=== PATIENT | female | born 1950 | race Caucasian/White ===

== ENCOUNTER 2018-04-21 14:08 | Outpatient (CLI) | payer BC | END 2018-04-21 14:09 | disposition home or self-care (01) | LOC: BICMAMMO 14:08 | PROVIDERS: ATTEND Obstetrics & Gynecology | DX: Z12.31 Encounter for screening mammogram for malignant neoplasm of breast (principal) | CPT/HCPCS: 77063; 77067 ==

== ENCOUNTER 2018-04-23 10:59 | Outpatient (CLI) | payer BC ==
--- NOTE | 2018-04-25 14:44 | RAD ---
MODIFIED BARIUM SWALLOW PERFORMED WITH SPEECH THERAPIST: HISTORY: Dysphagia, unspecified. Dysphagia, unspecified. Dysphagia pharyngeal phase and epistaxis. FINDINGS: The patient was given a variety of materials from thin liquid to soft tissue laura cracker. This sh owed premature spillage to the vallecular level with thin liquid, also some mild residue at the pirif orm sinus and vallecular levels. No evidence for aspiration demonstrated during the exam. There is a suggestion there may have been some very minimal flash penetration with what appeared to b e thin liquids. IMPRESSION: Flash penetration seen on 1 image. No aspiration demonstrated during this exam. See speech therapy report for additional detail. POS: [facility]
== END 2018-04-23 11:00 | disposition home or self-care (01) ==
PROVIDERS: ATTEND Otolaryngology Plastic Surgery within the Head & Neck
DX: R13.13 Dysphagia, pharyngeal phase (principal); R04.0 Epistaxis
CPT/HCPCS: 74230; G8996-GN-CJ; G8997-GN-CI; G8998-GN-CJ

== ENCOUNTER 2019-06-01 13:04 | Outpatient (CLI) | payer BC, MEDICARE ==
--- NOTE | 2019-06-01 16:27 | MMO ---
Bilateral MAMMO Bilat Screen [facility]. CLINICAL HISTORY: Patient is 69 years old and is seen for screening. The patient has no family history of breast cancer. The patient has no personal history of cancer. VIEWS: The views performed were: bilateral craniocaudal with tomosynthesis and bilateral mediolateral oblique with tomosynthesis. FILMS COMPARED: The present examination has been compared to prior imaging studies performed at [facility] on 03/23/2015, 03/26/2016, 04/22/2017 and 04/21/2018. This study has been interpreted with the assistance of computer-aided detection. MAMMOGRAM FINDINGS: The breasts are almost entirely fat. There are no suspicious masses, suspicious calcifications, or new areas of architectural distortion. IMPRESSION: THERE IS NO MAMMOGRAPHIC EVIDENCE OF MALIGNANCY. A ROUTINE FOLLOW-UP MAMMOGRAM IN 1 YEAR IS RECOMMENDED. THE RESULTS OF THIS EXAM WERE SENT TO THE PATIENT. ACR BI-RADS Category 1 - Negative MAMMOGRAPHY NOTE: 1. A negative mammogram report should not delay a biopsy if a dominant of clinically suspicious mass is present. 2. Approximately 10% to 15% of breast cancers are not detected by mammography. 3. Adenosis and dense breasts may obscure an underlying neoplasm. Reported by: FILIBERTO MUELLER MD Electonically Signed: [id number]
== END 2019-06-01 13:05 | disposition home or self-care (01) ==
LOC: BICMAMMO 13:04
PROVIDERS: ATTEND Obstetrics & Gynecology
DX: Z12.31 Encounter for screening mammogram for malignant neoplasm of breast (principal)
CPT/HCPCS: 77063; 77067

== ENCOUNTER 2019-10-09 10:32 | Outpatient (CLI) | payer MEDICARE, BC ==
--- NOTE | 2019-10-09 11:45 | MRI ---
MRI cervical spine noncontrast: DATE: 10/09/2019 HISTORY: 69-year-old female with cervical radiculopathy and chronic cervicalgia FINDINGS: Because of chronic cough, the patient's head was elevated. This results in poor etqzuc-we-qqxoq ratio in the mid cervical spine. This patient difficult to evaluate for intramedullary signal abnormality. The upper spinal cord and upper thoracic spinal cord are normal in size and signal. Vert ebral body heights are maintained. Mild reversal of curvature, kyphosis. Developmentally small caliber spinal canal exacerbated by cervical spondylosis. C1-2: No central stenosis. C2-3: Disc space maintained. Moderate bilateral facet DJD. Mild right neural foraminal stenosis. No s ignificant left neural foraminal stenosis. Mild central stenosis. C3-4: Moderate size bilateral uncinate process osteophytes. No high-grade disc space narrowing. Moder ate right facet DJD. Normal left facet joint. No high-grade central stenosis. Moderate right neural foraminal stenosis. No left neural foraminal stenosis. C4-5: Mild retrolisthesis of C4 on C5. Moderate to severe disc space narrowing. Broad-based disc-oste ophytic bar complex indents the ventral surface of spinal cord. Mild ligamentum flavum thickening abuts the dorsal surface of spinal cord. Severe central spinal canal stenosis. Moderate-large size bi lateral uncinate process osteophytes. Severe bilateral neural foraminal stenosis. No high-grade facet DJD. C5-6:Mild retrolisthesis of C5 on C6. Severe disc space narrowing. Broad-based disc-osteophytic bar c omplex indents the ventral surface of spinal cord. Mild ligamentum flavum thickening abuts the dorsal surface of spinal cord. Severe central spinal canal stenosis. Large size bilateral uncinate pr ocess osteophytes. Severe bilateral neural foraminal stenosis. No high-grade facet DJD. C6-7: Severe disc space narrowing. Broad-based disc-osteophytic bar complex abuts the ventral surface of spinal cord. Large bilateral uncinate process osteophytes cause bilateral moderate to severe neural foraminal stenosis. Normal facet joints. C7-T1: Bilateral moderate facet DJD causes slight grade 1 anterolisthesis of C7 on T1. Moderate right neural foraminal stenosis. Mild left neural foraminal stenosis. No central stenosis. Moderate disc space narrowing. IMPRESSION: Moderate cervical spondylosis, with multilevel high-grade degenerative disc disease, high-grade centr al spinal canal stenosis, and high-grade bilateral neural foraminal stenosis.
== END 2019-10-09 10:33 | disposition home or self-care (01) ==
LOC: SCSMRI 10:32
PROVIDERS: ATTEND Neurological Surgery
DX: M50.10 Cervical disc disorder with radiculopathy, unspecified cervical region (principal); M47.22 Other spondylosis with radiculopathy, cervical region; M48.02 Spinal stenosis, cervical region
CPT/HCPCS: 72141

== ENCOUNTER 2020-03-29 09:14 | Outpatient (CLI) | payer MEDICARE, BC ==
--- NOTE | 2020-03-29 12:28 | MRI ---
MRI LUMBAR SPINE WITH AND WITHOUT CONTRAST: HISTORY: Back pain. Left radiculopathy. History of prior surgery. FINDINGS: Comparison is made to MRI lumbar spine from 04/14/2015. The lumbar vertebrae maintain height. There are prominent degenerative disk changes at L2-3, L3-4, L4-5, and L5-S1. Degenerative disk and end plate changes have progressed significantly at L3-4 and L4-5 since the prior study. Anterolisthe sis at L3-4 is again noted, not significantly changed in degree. Degenerative disk changes at L2-[address] progressed. There is now posterior osteophyte and disk bulge at L2-3 when compared to the prior exam. Findings at each disk level are noted. T12-L1: No disk bulge or protrusion. No central canal or foraminal stenosis. L1-2: No significant disk bulge. Mild facet hypertrophy. No central canal or foraminal stenosis. L2-3: Posterior osteophyte and disk bulge flatten the thecal sac. Moderate facet hypertrophy with p osterior epidural fat. These changes result in mild to moderate central canal stenosis. Left forami nal stenosis. L3-4: The anterolisthesis is again noted with the broad-based disk bulge. Prominent posterior hyper trophic change. Posterior epidural fat. These changes compress the thecal sac resulting in moderate to severe central canal stenosis. Left foraminal stenosis. L4-5: Broad-based disk bulge. Prominent facet hypertrophy. Moderate central canal stenosis. Mild right foraminal stenosis. L5-S1: Broad-based disk bulge. Facet hypertrophy. No significant central canal stenosis. Mild moi ateral stenosis. IMPRESSION: There has been progression of degenerative disk changes at L2-3, L3-4, and L4-5 when compared to the prior study. Findings at each level noted above. POS: [facility]
== END 2020-03-29 09:15 | disposition home or self-care (01) ==
LOC: SCSMRI 09:14
PROVIDERS: ATTEND Neurological Surgery
DX: M51.16 Intervertebral disc disorders with radiculopathy, lumbar region (principal)
CPT/HCPCS: 72158; 82565

== ENCOUNTER 2020-05-13 06:47 | Outpatient (CLI) | payer MEDICARE, BC, OTHER ==
[2020-05-13 17:21] LABS: SARS-CoV-2 MS2 Positive; SARS-CoV-2 N Gene Negative; SARS-CoV-2 S Gene Negative; SARS-CoV-2 by NAA Not Detected (NotDetected); SARS-CoV-2 orf1ab Negative
== END 2020-05-13 06:48 | disposition home or self-care (01) ==
LOC: LABBT 06:47
PROVIDERS: ATTEND Surgery
DX: M48.061 Spinal stenosis, lumbar region without neurogenic claudication (principal); Z20.828 Contact with and (suspected) exposure to other viral communicable diseases
CPT/HCPCS: 87635; U0003

== ENCOUNTER 2020-05-18 06:37 | Day surgery (SDC) | payer MEDICARE, BC ==
[2020-05-17 13:35] VITALS: BMI 28.2
[2020-05-18] MEDS ORDERED: Bupivacaine HCl 0.5%/Epinephrine 1:200,000/PF 30 ml Vial ONE (08:11)
[2020-05-18] MEDS ORDERED: Fentanyl 100 MCG/2 ML VIAL ONE ×3 (08:36→10:57)
[2020-05-18] MEDS ORDERED: EPHEDRINE 25 MG/5 ML SYRINGE ONE (09:46)
[2020-05-18] MEDS ORDERED: PHENYLEPHRINE-NS 100 MCG/ML 10 ML SYRINGE ONE (09:46)
[2020-05-18] MEDS ORDERED: PROPOFOL 200 MG/20 ML VIAL ONE (09:46)
[2020-05-18] MEDS ORDERED: Rocuronium Bromide 10 MG/ML (10ML VIAL) ONE (09:46)
[2020-05-18] MEDS ORDERED: Dexamethasone 20 MG/5 ML VIAL ONE (09:46)
[2020-05-18] MEDS ORDERED: Ondansetron PF 4 MG/2 ML Vial ONE (09:46)
[2020-05-18] MEDS ORDERED: Lidocaine 1% PF 5 ML VIAL ONE (09:46)
[2020-05-18] MEDS ORDERED: SUGAMMADEX SODIUM 200 MG/2 ML VIAL ONE (10:35)
--- NOTE | 2020-05-18 11:20 | OP ---
DATE OF PROCEDURE: 05/18/2020 LITIGATION SERVICES MANAGER: Toan Dodd PA-C INDICATION: Pain. DIAGNOSES: Lumbar stenosis with symptoms of claudication and radiculopathy. PROCEDURE PERFORMED: L3-L4 decompression. ANESTHESIA: General. DESCRIPTION OF PROCEDURE: The patient was brought into the operating room and placed under general anesthesia. She was flipped from the supine to prone position on the operating room table. A linear incision was planned over the L3-L4 segment. After prepping and draping and after an appropriate preoperative pause, the incision was created. The soft tissues were swept away from midline. A self-retaining retractor was placed. After confirming the appropriate level with C-arm fluoroscopy, an Adson rongeur was used to remove the spinous process of L3 and the remaining portion of the superior aspect of L4. High-speed cutting drill bit as well as 2, 3, and 4 mm Kerrisons were used to complete the laminectomy. A laminectomy was extended laterally to encompass the medial aspect of the facet joints. There was a synovial cyst present at the L3-L4 segment on the right side, that was carefully removed. After completing the decompression, the wound was irrigated. Hemostasis was maintained throughout. The wound was then closed in anatomic layers, and a pressure dressing was applied. There were no known procedural complications. Job ID: [id number]
[2020-05-18] MEDS ORDERED: Labetalol HCl 100 MG/20 ML VIAL ONE (11:42)
[2020-05-18] MEDS ORDERED: Midazolam HCl 2 mg/2 ml Vial ONE (11:42)
--- NOTE | 2020-05-18 11:55 | HP ---
HISTORY OF PRESENT ILLNESS: Ms. Bradford is a pleasant 70-year-old woman, known to us for prior lumbar decompression, who returns now with bilateral lateral hip pains that worsen when walking. She has some tenderness over the bilateral greater trochanteric bursa and has attempted bursa injections with really no relief. She has attempted multiple lower back injections again with minimal relief. New MRI from [place] reveals rather significant central canal stenosis at L3-L4, this very well could cause any number of symptoms below that level, given she has exhausted treatment for bursitis, hip problems had her evaluated by Orthopedics. All this is come back negative for any other pathology, lumbar segment at L3-L4. She hopes to treat this given the significant impact is having on her activity level. PHYSICAL EXAMINATION: She is alert and oriented x3. Gait is mildly antalgic. Lower extremity motor exam is normal. Negative femoral stretch. Negative straight leg raise. PAST MEDICAL HISTORY: Anxiety, depression, and hypertension. PAST SURGICAL HISTORY: Lumbar decompression. MEDICATIONS: 1. Bupropion. 2. Fluoxetine. 3. Lisinopril. 4. Levothyroxine. 5. Clonidine. ALLERGIES: NO KNOWN DRUG ALLERGIES. ASSESSMENT: Lumbar stenosis. PLAN: Dr. Nelson met with the patient, reviewed imaging, and advocated for L3-L4 decompression. He explained to the patient the risks, benefits, and alternatives to the procedure. The patient expressed understanding and elected to move forward with surgery as discussed. I do believe the patient is mentally component and capable of making medical decisions for herself. We will move forward with surgery as planned. Job ID: [id number]
[2020-05-18] MEDS ORDERED: Acetaminophen/Codeine 30-300mg Tablet ONE (13:05)
== END 2020-05-18 13:55 | disposition home or self-care (01) ==
LOC: SDC 06:37
PROVIDERS: ATTEND Neurological Surgery
PROC: 01NB0ZZ Release Lumbar Nerve, Open Approach (ICD-10-PCS; principal; 2020-05-18)
DX: M48.062 Spinal stenosis, lumbar region with neurogenic claudication (principal); M54.16 Radiculopathy, lumbar region; M71.38 Other bursal cyst, other site; F41.9 Anxiety disorder, unspecified; F32.9 Major depressive disorder, single episode, unspecified; I10 Essential (primary) hypertension; Z79.899 Other long term (current) drug therapy
CPT/HCPCS: 76000; J0690; J1100; J2250; J2405; J2704; J3010

== ENCOUNTER 2020-05-25 19:48 | Emergency (ER) | payer MEDICARE, BC ==
--- NOTE | 2020-05-25 22:10 | ULT ---
LEFT LOWER EXTREMITY VENOUS DUPLEX EXAM: Date: 05/25/2020 INDICATION: Left lower extremity pain and edema. FINDINGS: Deep veins of left lower extremity evaluated with ultrasound and Doppler. Color Doppler, spectral ck lysis, and compression studies. Deep veins of left lower extremity demonstrate normal blood flow and compression. No evidence of deep venous thrombosis. IMPRESSION: No evidence of left lower extremity deep venous thrombosis. POS: [facility]
[2020-05-25 22:50] LABS: Prothrombin Time 13.1 sec (12.0-14.7)
== END 2020-05-25 22:42 | disposition home or self-care (01) ==
LOC: ERS 19:48
DX: M79.89 Other specified soft tissue disorders (principal); I10 Essential (primary) hypertension; F41.9 Anxiety disorder, unspecified; F32.9 Major depressive disorder, single episode, unspecified
CPT/HCPCS: 36415; 85610; 85730

== ENCOUNTER 2020-11-23 13:20 | Outpatient (CLI) | payer MEDICARE, BC | END 2020-11-23 13:21 | disposition home or self-care (01) | LOC: BICMAMMO 13:20 | PROVIDERS: ATTEND Neurological Surgery | DX: Z13.820 Encounter for screening for osteoporosis (principal); M47.26 Other spondylosis with radiculopathy, lumbar region; M25.552 Pain in left hip; M85.851 Other specified disorders of bone density and structure, right thigh; M85.852 Other specified disorders of bone density and structure, left thigh | CPT/HCPCS: 72131; 77080 ==

== ENCOUNTER 2020-12-13 09:08 | Outpatient (CLI) | payer MEDICARE, BC | END 2020-12-13 09:09 | disposition home or self-care (01) | LOC: TBSIIMAG 09:08 | PROVIDERS: ATTEND Neurological Surgery | DX: M47.26 Other spondylosis with radiculopathy, lumbar region (principal) | CPT/HCPCS: 72100 ==

== ENCOUNTER 2021-01-13 06:31 | Observation (INO) | payer MEDICARE, BC ==
[2021-01-13] MEDS ORDERED: EPINEPHrine 1 MG/ML AMP ONE (06:38)
[2021-01-13] MEDS ORDERED: Thrombin 5000 UNITS/5 ML VIAL ONE (06:38)
[2021-01-13] MEDS ORDERED: Bupivacaine PF 0.5% 30 ML VIAL ONE (06:38)
[2021-01-13] MEDS ORDERED: Fentanyl 100 MCG/2 ML VIAL ONE ×4 (07:12→13:33)
[2021-01-13] MEDS ORDERED: Ondansetron PF 4 MG/2 ML Vial ONE (07:52)
[2021-01-13] MEDS ORDERED: Dexamethasone 20 MG/5 ML VIAL ONE (07:52)
[2021-01-13] MEDS ORDERED: Lidocaine 1% PF 5 ML VIAL ONE (07:52)
[2021-01-13] MEDS ORDERED: PHENYLEPHRINE-NS 100 MCG/ML 10 ML SYRINGE ONE (07:52)
[2021-01-13] MEDS ORDERED: Ketorolac Tromethamine 30 MG/ML VIAL ONE (07:52)
[2021-01-13] MEDS ORDERED: PROPOFOL 200 MG/20 ML VIAL ONE (07:52)
[2021-01-13] MEDS ORDERED: Rocuronium Bromide 10 MG/ML (10ML VIAL) ONE (07:52)
[2021-01-13] MEDS ORDERED: Vecuronium 10 MG VIAL ONE (07:52)
[2021-01-13] MEDS ORDERED: Albumin 5% 500 ML ONE (10:04)
[2021-01-13] MEDS ORDERED: SUGAMMADEX SODIUM 200 MG/2 ML VIAL ONE (10:44)
[2021-01-13] MEDS ORDERED: HYDROmorphone 0.5 MG/0.5 ML SYRINGE ONE ×2 (11:51→12:35)
[2021-01-13] MEDS ORDERED: HYDROcodone/Acetaminophen 5/325 mg Tablet ONE ×2 (14:23→18:34)
[2021-01-13] MEDS ORDERED: tiZANidine HCl 4 MG TAB PO PRN (19:29)
[2021-01-13] MEDS ORDERED: Ondansetron PF 4 MG/2 ML Vial IM PRN (19:29)
[2021-01-13] MEDS ORDERED: Morphine 2 MG/ML VIAL SLOW IVP PRN (19:30)
[2021-01-13] MEDS ORDERED: diphenhydrAMINE 25 MG CAP PO PRN (19:30)
[2021-01-13] MEDS ORDERED: Acetaminophen 650 MG Suppository PR PRN (19:30)
[2021-01-13] MEDS ORDERED: diphenhydrAMINE 50 MG/ML VIAL IVP PRN (19:30)
[2021-01-13] MEDS ORDERED: Sodium Chloride 0.9% 1,000 ML IV SCH (19:30)
[2021-01-13] MEDS ORDERED: Acetaminophen 325 MG TAB PO PRN (19:30)
[2021-01-13] MEDS ORDERED: Morphine 4 MG/ML VIAL SLOW IVP PRN (19:30)
[2021-01-13] MEDS ORDERED: Bisacodyl 10 MG SUPP PR PRN (19:30)
[2021-01-13 19:44] VITALS: BMI 30.2
[2021-01-13] MEDS: CEFAZOLIN 2 GM in Premix Bag 1 BAG IVPB SCH (20:10)
[2021-01-13] MEDS ORDERED: Donepezil HCl 5 MG TAB PO SCH (21:00)
[2021-01-13] MEDS ORDERED: Modafinil 100 MG TAB PO SCH (21:00)
[2021-01-13] MEDS: ALPRAZolam 0.5 MG TAB PO SCH (21:49)
[2021-01-13] MEDS ORDERED: HYDROcodone/Acetaminophen 10/325 mg Tablet PO PRN (22:00)
[2021-01-13] MEDS: HYDROcodone/Acetaminophen 10/325 mg Tablet PO PRN (22:02)
[2021-01-14] MEDS: CEFAZOLIN 2 GM in Premix Bag 1 BAG IVPB SCH (04:22)
[2021-01-14] MEDS: HYDROcodone/Acetaminophen 10/325 mg Tablet PO PRN ×2 (04:26→12:27)
[2021-01-14] MEDS ORDERED: Levothyroxine Sodium 100 MCG TAB PO SCH (06:00)
[2021-01-14] MEDS ORDERED: Losartan 25 MG TAB PO SCH (09:00)
[2021-01-14] MEDS ORDERED: Amlodipine 5 MG TAB PO SCH (09:00)
[2021-01-14] MEDS ORDERED: PARoxetine 20 MG TAB PO SCH (09:00)
[2021-01-14] MEDS ORDERED: Hydrochlorothiazide 25 MG TAB PO SCH (09:00)
[2021-01-14] MEDS ORDERED: Bupropion 150 MG XL TAB PO SCH (09:00)
[2021-01-14] MEDS: ALPRAZolam 0.5 MG TAB PO SCH (09:06)
[2021-01-14 11:50] VITALS: BP 103/53; TEMP 98.1
== END 2021-01-14 12:46 | disposition home or self-care (01) ==
LOC: SDC 06:31 → SURG A 18:26
PROVIDERS: ADMIT Neurological Surgery; ATTEND Neurological Surgery
PROC: 0SG0071 Fusion of Lumbar Vertebral Joint with Autologous Tissue Substitute, Posterior Approach, Posterior Column, Open Approach (ICD-10-PCS; principal; 2021-01-13)
DX: M48.061 Spinal stenosis, lumbar region without neurogenic claudication (principal); M43.16 Spondylolisthesis, lumbar region; M47.26 Other spondylosis with radiculopathy, lumbar region; M51.16 Intervertebral disc disorders with radiculopathy, lumbar region; I10 Essential (primary) hypertension; Z79.899 Other long term (current) drug therapy; Z98.890 Other specified postprocedural states
CPT/HCPCS: 20930; 20936; 22612; 22840; 76000; 96365; 96376; C1713 ×4; C1768; G0378 ×2; P9045; J0171; J0690; J1100; J1170; J1885; J2405; J2704; J3010; S0020

== ENCOUNTER 2021-06-15 13:53 | Outpatient (CLI) | payer MEDICARE, BC | END 2021-06-15 13:54 | disposition home or self-care (01) | LOC: TBSIIMAG 13:53 | PROVIDERS: ATTEND Neurological Surgery | DX: M47.26 Other spondylosis with radiculopathy, lumbar region (principal); Z98.1 Arthrodesis status | CPT/HCPCS: 72158 ==

== ENCOUNTER 2022-02-23 02:56 | Emergency (ER) | payer MEDICARE, BC ==
[2022-02-23] MEDS ORDERED: Cyclobenzaprine 10 MG TAB ONE (03:30)
[2022-02-23] MEDS ORDERED: HYDROcodone/Acetaminophen 5/325 mg Tablet ONE (06:45)
[2022-02-23] MEDS ORDERED: Dexamethasone 4 MG TAB ONE (10:25)
[2022-02-23] MEDS ORDERED: Morphine 4 MG/ML VIAL ONE (10:25)
== END 2022-02-23 10:36 | disposition home or self-care (01) ==
LOC: ERS 02:56
DX: M48.02 Spinal stenosis, cervical region (principal); I10 Essential (primary) hypertension; Z79.899 Other long term (current) drug therapy
CPT/HCPCS: 72125; 72141; 96372; J2270; J8540

== ENCOUNTER 2022-03-30 10:59 | Outpatient (CLI) | payer MEDICARE, BC | END 2022-03-30 11:00 | disposition home or self-care (01) | LOC: LABBT 10:59 | PROVIDERS: ATTEND Neurological Surgery | DX: Z01.818 Encounter for other preprocedural examination (principal); Z20.822 Contact with and (suspected) exposure to COVID-19 | CPT/HCPCS: 87811; 93005; 93010 ==

== ENCOUNTER 2022-04-04 06:33 | Day surgery (SDC) | payer MEDICARE, BC ==
[2022-04-03 13:21] VITALS: BMI 26.4
[2022-04-04] MEDS ORDERED: Thrombin 5000 UNITS/5 ML VIAL ONE (06:43)
[2022-04-04] MEDS ORDERED: fentaNYL Citrate/PF 100 MCG/2 ML SYRINGE ONE (06:44)
[2022-04-04] MEDS ORDERED: Ketamine 50 MG/ML (10ML VIAL) ONE (06:44)
[2022-04-04] MEDS ORDERED: Midazolam HCl 2 mg/2 ml Vial ONE (06:44)
[2022-04-04] MEDS ORDERED: Sodium Chloride 0.9% 100 ML ONE ×2 (06:56→13:50)
[2022-04-04] MEDS ORDERED: CEFAZOLIN 2 GM VIAL ONE ×3 (06:56→13:49)
[2022-04-04] MEDS ORDERED: Lidocaine 1% MPF 2 ML VIAL ONE ×2 (06:56→07:46)
[2022-04-04] MEDS ORDERED: Dexamethasone 20 MG/5 ML VIAL ONE (07:46)
[2022-04-04] MEDS ORDERED: PROPOFOL 200 MG/20 ML VIAL ONE (07:46)
[2022-04-04] MEDS ORDERED: Rocuronium Bromide 10 MG/ML (10ML VIAL) ONE (07:46)
[2022-04-04] MEDS ORDERED: Metoprolol Tartrate 5 MG/5 ML VIAL ONE (07:46)
[2022-04-04] MEDS ORDERED: Ondansetron PF 4 MG/2 ML Vial ONE (07:46)
[2022-04-04] MEDS ORDERED: Phenylephrine 10 MG/ML VIAL ONE (07:46)
[2022-04-04] MEDS ORDERED: NEOSTIGMINE 3 MG/3 ML SYR 3 MG/3 ML SYRINGE ONE (07:46)
[2022-04-04] MEDS ORDERED: Glycopyrrolate 0.2 MG/ML 5 ML SYRINGE ONE (07:46)
[2022-04-04] MEDS ORDERED: Ketorolac Tromethamine 30 MG/ML VIAL ONE (07:46)
[2022-04-04] MEDS ORDERED: Fentanyl 100 MCG/2 ML VIAL ONE (09:55)
[2022-04-04] MEDS ORDERED: HYDROmorphone 0.5 MG/0.5 ML SYRINGE ONE ×3 (10:02→11:12)
== END 2022-04-04 15:48 | disposition home or self-care (01) ==
LOC: SDC 06:33
PROVIDERS: ATTEND Neurological Surgery
PROC: 0RG20A0 Fusion of 2 or more Cervical Vertebral Joints with Interbody Fusion Device, Anterior Approach, Anterior Column, Open Approach (ICD-10-PCS; principal; 2022-04-04)
DX: M48.02 Spinal stenosis, cervical region (principal); M47.22 Other spondylosis with radiculopathy, cervical region; I10 Essential (primary) hypertension; Z79.890 Hormone replacement therapy; Z79.899 Other long term (current) drug therapy; Z98.1 Arthrodesis status
CPT/HCPCS: 76000; C1713; J0690; J1100; J1170; J1885; J2250; J2370; J2405; J2704; J3010; J3490

== ENCOUNTER 2023-06-18 09:41 | Outpatient (CLI) | payer MEDICARE, BC | END 2023-06-18 09:42 | disposition home or self-care (01) | LOC: SCSRAD 09:41 | PROVIDERS: ATTEND Physician Assistant | DX: M54.16 Radiculopathy, lumbar region (principal); M43.16 Spondylolisthesis, lumbar region; M43.17 Spondylolisthesis, lumbosacral region; Z98.1 Arthrodesis status | CPT/HCPCS: 72120 ==

== ENCOUNTER 2023-07-15 09:34 | Outpatient (CLI) | payer MEDICARE, BC | END 2023-07-15 09:35 | disposition home or self-care (01) | LOC: SCSCT 09:34 | PROVIDERS: ATTEND Neurological Surgery | DX: M54.50 Low back pain, unspecified (principal); M25.552 Pain in left hip; M47.816 Spondylosis without myelopathy or radiculopathy, lumbar region; M47.817 Spondylosis without myelopathy or radiculopathy, lumbosacral region | CPT/HCPCS: 72131 ==

== ENCOUNTER 2025-05-28 10:22 | Outpatient (CLI) | payer MEDICARE | END 2025-05-28 10:23 | disposition home or self-care (01) | LOC: SCSBT 10:22 | PROVIDERS: ATTEND Nurse Practitioner Family | DX: Z78.0 Asymptomatic menopausal state (principal); M81.0 Age-related osteoporosis without current pathological fracture; M85.852 Other specified disorders of bone density and structure, left thigh | CPT/HCPCS: 77080 ==